=== PATIENT | male | born 1950 | race Caucasian/White ===

== ENCOUNTER 2016-08-13 08:56 | Day surgery (SDC) | payer BC ==
[~2016-08-13] VITALS: Ht 177.8 cm; Wt 92.8 kg
[~2016-08-13 08:56] MED LIST: HYDR-906 PO; IBUP400T22 PO; TAMS-14 PO
[2016-08-13 09:51] VITALS: Ht 177.8 cm; Wt 92.8 kg
[2016-08-13] MEDS ORDERED: LANT3I SC (09:55)
[2016-08-13] MEDS ORDERED: ASPI-664 PO (09:55)
[2016-08-13] MEDS ORDERED: omega 3 PO (09:55)
[2016-08-13] MEDS ORDERED: ramipril PO (09:55)
[2016-08-13] MEDS ORDERED: janumet (09:55)
[2016-08-13] MEDS ORDERED: PROPOFOL 20 ML ONE ×2 (10:56→11:57)
[2016-08-13] MEDS ORDERED: PROPOFOL 40 ML ONE (10:56)
[2016-08-13 12:12] VITALS: BP 117/67; PULSE 68; RESP 18
--- NOTE | 2016-08-14 07:33 | GILP ---
DATE OF PROCEDURE: 08/13/2016 NAME OF PROCEDURES: Colonoscopy, biopsy, polypectomy and clipping. SURGEON: Shon Rivera MD PREOPERATIVE DIAGNOSIS: Screening colonoscopy. POSTOPERATIVE DIAGNOSES: 1. Multiple colon polyps. They were removed using the biopsy forceps as well as snare and the elec trocautery. Clipping of one of the polypectomy sites was done in the sigmoid colon to prevent bleed ing. 2. Internal hemorrhoids. INDICATION FOR THE PROCEDURE: Mr. Claudio Back is a 66-year-old male patient who was scheduled for screening colonoscopy. The procedure and possible complications are well explained to the patient. The patient understood and consented to the procedure. DESCRIPTION OF PROCEDURE: Under the influence of anesthesia, the colonoscope was carefully introduc ed in the rectum and under direct vision, it was advanced all the way to the cecum. FINDINGS: The patient was noted to have multiple polyps in the sigmoid colon as well as the right c olon. They were removed using the biopsy forceps as well as snare and electrocautery. One of the lar ge sigmoid colon polyps was removed using the snare and electrocautery. Clipping of the polypectomy site was done to prevent bleeding. Patient was noted to have internal hemorrhoids. He tolerated the procedure very well and there was no complication from the procedure. At the end o f the procedure, he was awake with stable vital signs and he was discharged home to the care of his family. IMPRESSION: 1. Multiple colon polyps were removed using the biopsy forceps as well as snare and electrocautery. Clipping of one of the polypectomy sites in the sigmoid colon was done to prevent bleeding. 2. Internal hemorrhoids. PLAN: 1. Await histopathology report. 2. The patient will need followup colonoscopy in 3 years. Dictated By: SHON DE LA ROSA/SKY Conf#: [id number] DID#: [id number]
== END 2016-08-13 15:31 | disposition home or self-care (01) ==
LOC: GIL 08:56
PROVIDERS: ATTEND Internal Medicine Gastroenterology
DX: Z12.11 Encounter for screening for malignant neoplasm of colon (principal); D12.5 Benign neoplasm of sigmoid colon; I10 Essential (primary) hypertension; E11.9 Type 2 diabetes mellitus without complications; K64.8 Other hemorrhoids
CPT/HCPCS: 45380; 82962; Z7610; 88305

== ENCOUNTER 2019-04-09 06:57 | Emergency (ER) | payer MEDICARE, BC ==
[~2019-04-09] VITALS: Ht 170.2 cm; Wt 96.0 kg
[~2019-04-09 06:57] MED LIST changes: +ACET500C5 PO; +ACYC800T5 PO; +ASPI-1046 PO; +HYDR-4011 PO; -HYDR-906 PO; +IBUP-1561 PO; -IBUP400T22 PO; +LANT3I SC; +janumet; +omega 3 PO; +ramipril PO
[2019-04-09 06:58] VITALS: BP 145/61; PULSE 88; RESP 17; Ht 170.2 cm; Wt 96.0 kg
[2019-04-09] MEDS ORDERED: HYDROCODONE/APAP (10/325) TAB PO ONE (08:00)
== END 2019-04-09 08:22 | disposition home or self-care (01) ==
LOC: FTE 06:57
DX: M25.512 Pain in left shoulder (principal); I10 Essential (primary) hypertension; E11.9 Type 2 diabetes mellitus without complications; I25.10 Atherosclerotic heart disease of native coronary artery without angina pectoris; R21 Rash and other nonspecific skin eruption; Z79.4 Long term (current) use of insulin; Z79.82 Long term (current) use of aspirin; Z87.891 Personal history of nicotine dependence; Z98.61 Coronary angioplasty status
CPT/HCPCS: 93005